=== PATIENT | male | born 1990 | race Caucasian/White ===

== ENCOUNTER 2021-03-31 09:43 | Emergency (ER) | payer OTHER, SELFPAY ==
--- NOTE | ~2021-03-31 | XR_ITS ---
EXAMINATION: XR chest 2V EXAM DATE: 03/31/2021 10:20 INDICATION: Mid chest pain after blunt injury one month ago. TECHNIQUE: Frontal and lateral projections of the chest obtained and reviewed. There is no prior shahid dy for comparison. FINDINGS: The lungs are clear. There are no pleural effusions. The cardiomediastinal silhouette is within normal limits. There is no pneumothorax suspected. The bones and soft tissues are unremarkab le. IMPRESSION: No acute cardiopulmonary findings. Reviewed, dictated and finalized at location B.
[2021-03-31 09:54] VITALS: BP 151/102; PULSE 100; RESP 14; TEMP 36.9; O2SAT 100
--- NOTE | 2021-03-31 10:14 | ED.GENADULT ---
HPI - General Adult General Chief complaint: Unspecified Stated complaint: Possible injury to Ribs Time Seen by Provider: 03/31/21 10:16 Source: patient and RN notes reviewed Mode of arrival: ambulatory Limitations: no limitations History of Present Illness HPI narrative: 30-year-old male with history of SVT presents with concern for midsternal chest pain. He reports 1 month ago while doing martial arts, a heavy person fell on his chest. Reports recently when doing push-ups he notices a midsternal pain. He denies pain in any other time. He denies pain with palpation, denies shortness of breath, generalized chest pain, diaphoresis. He denies intervention. He denies any other exacerbating factors other than doing push-ups. MD complaint: Rib pain Related Data Home Medications Medication Instructions Recorded Confirmed lisinopril 10 mg PO DAILY 03/31/21 03/31/21 Allergies Allergy/AdvReac Type Severity Reaction Status Date / Time NKDA Allergy Mild Unknown Uncoded 03/31/21 10:05 Review of Systems Review of Systems: CONSTITUTIONAL: Denies malaise, chills, sweats, or fever. CARDIOVASCULAR: Reports midsternal chest wall pain with certain activities. Denies chest pain, palpitations, or edema. RESPIRATORY: Denies cough or dyspnea. SKIN: Denies bruising, redness, swelling MUSCULOSKELETAL: Denies back pain. Reports anterior mid sternal chest wall pain NEUROLOGIC: Denies numbness, weakness All systems reviewed & are unremarkable except as noted in HPI and below PMFSH Comments At time of signature, agree with nursing past medical, surgical, social and family history. There is no relevant family history pertinent to the presenting complaint Exam Narrative: GENERAL: Well-appearing, well-nourished, and in no acute distress. HEAD: Normocephalic EYES: PERRLA, conjunctivae clear ENT: Mucous membranes moist. NECK: Supple. CHEST: No respiratory distress. Clear to auscultation. No bony deformities, no asymmetry. Speaks in full sentences. No chest wall pain or tenderness upon palpation HEART: Regular rate and rhythm. No murmur heard. Normal peripheral pulses. EXTREMITIES: Grossly normal range of motion, grossly normal strength and sensation. SKIN: Warm, dry, no visible rash. No erythema, ecchymosis noted NEURO: Alert and oriented x3 PSYCH: Normal mood and affect Course Course Emergency Course: Discussed need for EKG, patient refuses EKG at this time. Reports he just had an EKG at his primary care which was normal . Patient is aware of diagnosis, understands and agrees to treatment plan. Anticipatory guidance given. Patient agrees to follow-up as directed and is aware of reasons to seek care at the emergency department. Portions of this record may have been created with voice recognition software Vital Signs Vital signs: Vital Signs Temperature 98.4 F 03/31/21 09:54 Pulse Rate 100 03/31/21 09:54 Respiratory Rate 14 03/31/21 09:54 Blood Pressure 151/102 H 03/31/21 09:54 Pulse Oximetry 100 03/31/21 09:54 Temperature 98.4 F 03/31/21 09:54 Pulse Rate 100 03/31/21 09:54 Respiratory Rate 14 03/31/21 09:54 Blood Pressure 151/102 H 03/31/21 09:54 Pulse Oximetry 100 03/31/21 09:54 Reviewed. Pt has been instructed to follow up with his primary care provider within the next week regarding his elevated blood pressure today. Medical Decision Making MDM Narrative Medical decision making narrative: Exam findings and imaging show no acute concerns or changes; patient is non-toxic appearing and is in no distress. Patient is appropriate for outpatient treatment and follow-up. Differential Diagnosis Differential Diagnosis: Symptoms pneumothorax, rib contusion, rib fracture, sternal fracture, cardiac tamponade, flail chest Vital Signs Vital Signs: Vital Signs Temperature 98.4 F 03/31/21 09:54 Pulse Rate 100 03/31/21 09:54 Respiratory Rate 14 03/31/21 09:54 Blood Pressure 151/102 H 03/31/21 09:5
== END 2021-03-31 10:36 | disposition home or self-care (01) ==
PROVIDERS: Emergency Provider Nurse Practitioner; PCP Internal Medicine
DX: R07.89 Other chest pain (principal)
CPT/HCPCS: 71046; 99203; G0463